=== PATIENT | female | born 2000 | race Caucasian/White ===

== ENCOUNTER 2022-03-04 00:24 | Emergency (ER) | payer OTHER ==
[2022-03-04 00:38] VITALS: BP 131/70; PULSE 90; RESP 19; TEMP 98
--- NOTE | 2022-03-04 01:37 | XR ---
EXAMINATION TYPE: XR ankle complete RT DATE OF EXAM: 03/04/2022 COMPARISON: NONE HISTORY: Ankle pain TECHNIQUE: 3 views FINDINGS: Ankle mortise is anatomic. I see no fracture nor dislocation. Joint spaces are normal. IMPRESSION: Negative right ankle exam. No fracture.
[2022-03-04] MEDS ORDERED: IBUPROFEN 600 MG TAB PO STA (03:15)
--- NOTE | 2022-03-04 03:18 | ED ---
General Adult HPI - General Chief complaint: Extremity Injury, Lower Stated complaint: Rt Ankle Injury Time Seen by Provider: 03/04/22 02:31 Source: patient, RN notes reviewed Mode of arrival: wheelchair - History of Present Illness Initial comments: 22-year-old female presents to the emergency Department with complaints of right ankle pain. She states that she was walking this evenign when her ankle "gave out." Patient states when this happened her ankle rolled and she was unable to bear weight due to pain at that time. States she had a previous chip fracture last year in the same area due to an injury that occurred while longboarding. States she has had no ongoing issue since that injury aside from today. Did not take anything to treat her symptoms prior to arrival today. Denies any back, hip, or knee pain. - Related Data Previous Rx's Medication Instructions Recorded Ibuprofen [Motrin] 600 mg PO Q8HR PRN #20 tab 03/04/22 Allergies Allergy/AdvReac Type Severity Reaction Status Date / Time No Known Allergies Allergy Verified 03/04/22 00:38 Review of Systems ROS Statement: Those systems with pertinent positive or pertinent negative responses have been documented in the HPI. ROS Other: All systems not noted in ROS Statement are negative. Past Medical History Past Medical History: No Reported History History of Any Multi-Drug Resistant Organisms: None Reported Additional Past Surgical History / Comment(s): right ankle fracture 2020 Past Psychological History: No Psychological Hx Reported Smoking Status: Never smoker Past Alcohol Use History: None Reported Past Drug Use History: None Reported General Exam Limitations: no limitations General appearance: alert, in no apparent distress (well-developed, well- nourished female in no acute distress. Initial temperature 98.0, pulse 90, respirations 19, blood pressure 131/70, pulse ox 99% on room air.) Respiratory exam: Present: normal lung sounds bilaterally. Absent: respiratory distress, wheezes, rales, rhonchi, stridor Cardiovascular Exam: Present: regular rate, normal rhythm, normal heart sounds. Absent: systolic murmur, diastolic murmur, rubs, gallop, clicks GI/Abdominal exam: Present: soft, normal bowel sounds. Absent: distended, tenderness, guarding, rebound, rigid Right Knee exam: Present: normal inspection, full ROM. Absent: tenderness, swelling, abrasion, deformity Lower Leg exam: Present: normal inspection, full ROM. Absent: tenderness, swe lling, deformity Ankle exam: Present: normal inspection, tenderness (tenderness upon palpation of right lateral malleolus extending along the proximal dorsal surface of the fo ot), swelling (mild swelling lateral malleolus). Absent: full ROM (decreased flexion d/t pain), abrasion, laceration, ecchymosis, deformity, erythema Foot/Toe exam: Present: normal inspection, full ROM, tenderness (proximal dorsal surface right foot) Neurovascular tendon exam: Present: no vascular compromise. Absent: pulse deficit, abnormal cap refill Gait: observed and limited by pain Neurological exam: Present: alert, oriented X3 Psychiatric exam: Present: normal affect, normal mood Skin exam: Present: warm, dry, intact, normal color. Absent: rash Course Vital Signs 03/04/22 00:36 Temperature 98 F Pulse Rate 90 Respiratory 19 Rate Blood Pressure 131/70 O2 Sat by Pulse 99 Oximetry Procedures - Orthopedic Splinting/Casting Injury #1 Side: right Lower Extremity Injury Location: ankle Lower Extremity Immobilizer: AirCast, Anthony wrap Other Orthopedic Equipment: crutches Additional Comments: Instructed on appropriate use of crutches; return demonstration satisfactory. Medical Decision Making - Medical Decision Making this is a 22-year-old female with a past medical history of the right ankle chip fracture who presents to the emergency Department with complaints of right ankle pain. Upon exam, patient is well-appearing with minimal discomfort at rest. She has mild swelling of the right lateral malleolus and discomfort extending to the dorsal surface of the foot. Pain worsens with flexion of the foot and weight bearing. Distal sensation intact. +2 pedal and post-tibial pulses. Xray was obtained showing no acute findings. Anthony wrap and aircast placed. Given motrin with some improvement. Crutches prescribed, patient able to use without difficulty. Work noted provided to facilitate follow up with PCP or orthopedist from previous injury on Sunday. Return parameters discussed in detail. patient verbalizes understanding and agrees with this plan. Attending: Mauro. - Radiology Data Radiology results: report reviewed, image reviewed X-ray of the right ankle was obtained. Report was reviewed in its entirety. Impression per Dr. Faulkner is negative right ankle exam. No fracture. Disposition Clinical Impression: Right ankle sprain Disposition: HOME SELF-CARE Condition: Stable Instructions (If sedation given, give patient instructions): Ankle Sprain (ED) Additional Instructions: Utilize crutches while weight bearing/walking. Elevate affected extremity while at rest. Apply ice for no more than 20 minutes per hour. Take Motrin for discomfort. Follow up with your PCP or orthopedist for a recheck on Sunday if pain persists. Return to the emergency department with any new, worsening, or concerning symptoms. Prescriptions: Ibuprofen [Motrin] 600 mg PO Q8HR PRN #20 tab PRN Reason: Pain Is patient prescribed a controlled substance at d/c from ED?: No Referrals: None,Stated [Primary Care Provider] - 1-2 days Time of Disposition: 03:34
== END 2022-03-04 04:04 | disposition home or self-care (01) ==
LOC: EC 00:24
DX: S93.401A Sprain of unspecified ligament of right ankle, initial encounter (principal); X58.XXXA Exposure to other specified factors, initial encounter; Y93.01 Activity, walking, marching and hiking
CPT/HCPCS: 99283